=== PATIENT | male | born 1990 | race Caucasian/White ===

== ENCOUNTER 2024-04-04 12:45 | Emergency (ER) | payer MEDICARE, SELFPAY ==
--- NOTE | ~2024-04-04 | XR_ITS ---
EXAMINATION: XR SHOULDER, LEFT CLINICAL INFORMATION: Pain COMPARISON: None available. TECHNIQUE: Three views of the left shoulder. FINDINGS: The bones and soft tissues are normal. No fracture. Glenohumeral and acromioclavicular alignment is anatomic with normal joint space. There is increased coracoclavicular distance measuring 15 mm. XR/XR shoulder LT min 2V IMPRESSION: Widening of the coracoclavicular distance may be due to ligamentous injury.
--- NOTE | ~2024-04-04 | XR_ITS ---
EXAMINATION: XR HAND/WRIST, RIGHT CLINICAL INFORMATION: Right hand pain COMPARISON: None TECHNIQUE: PA, lateral, and oblique views of the right hand and wrist. FINDINGS: The bones and soft tissues are normal. No fracture. Alignment is anatomic. Joint spaces are maintained. No erosions or soft tissue calcifications. XR/XR hand wrist RT IMPRESSION: Normal radiographs of the hand and wrist.
[2024-04-04 12:59] VITALS: BP 106/77; BP 122/70; PULSE 102; PULSE 90; RESP 21; TEMP 36.5; O2SAT 97; O2SAT 98; BMI 20.9
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
[2024-04-04] MEDS: LORazepam 2 MG/ML VIAL IM ×2 (14:55→16:25)
[2024-04-04] MEDS: Haloperidol Lactate 5 MG/ML VIAL IM (14:55)
--- NOTE | 2024-04-04 14:55 | MHC.EDTECH ---
pt refusing vital signs to be checked, very aggressive, security called.
[2024-04-04] MEDS: diphenhydrAMINE HCL 50 MG/ML VIAL IM (16:25)
[2024-04-04] MEDS: chlorproMAZINE HCl 25 MG/ML AMPUL 100 MG IM (16:25)
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
[2024-04-04 17:06] VITALS: BP 119/64; PULSE 92; RESP 20
[2024-04-04 17:09] VITALS: BP 119/64; PULSE 92; RESP 20; TEMP -17.7; TEMP 0; O2SAT 0
== END 2024-04-04 16:30 | disposition home or self-care (01) ==
PROVIDERS: Emergency Provider Emergency Medicine Emergency Medical Services
DX: M25.512 Pain in left shoulder (principal); M79.641 Pain in right hand; F91.8 Other conduct disorders; S90.822A Blister (nonthermal), left foot, initial encounter; S90.821A Blister (nonthermal), right foot, initial encounter; X58.XXXA Exposure to other specified factors, initial encounter; R45.851 Suicidal ideations; R45.1 Restlessness and agitation; Y93.9 Activity, unspecified; Y92.9 Unspecified place or not applicable; Y99.9 Unspecified external cause status; F41.9 Anxiety disorder, unspecified; F31.9 Bipolar disorder, unspecified; F19.10 Other psychoactive substance abuse, uncomplicated; F90.9 Attention-deficit hyperactivity disorder, unspecified type; Z59.00 Homelessness unspecified; F64.0 Transsexualism
CPT/HCPCS: 73030; 73110; 73130; 96372; 99284; 99285; J1200; J1630; J2060; J3230

== ENCOUNTER 2024-04-23 16:28 | Inpatient (IN) | payer OTHER, MEDICAID, SELFPAY ==
--- NOTE | ~2024-04-23 | XR_ITS ---
EXAMINATION: XR HAND, RIGHT CLINICAL INFORMATION: Third digit injury. COMPARISON: Radiographs dated 04/04/2024. TECHNIQUE: PA, lateral, and oblique views of the right hand. FINDINGS: The bones and soft tissues are normal. No fracture. Alignment is anatomic. Joint spaces are maintained. No erosions or soft tissue calcifications. XR/XR hand RT 2V IMPRESSION: Normal right hand.
[2024-04-23 15:50] VITALS: BP 137/80; PULSE 90; RESP 18; TEMP 36.8; O2SAT 99
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
--- NOTE | 2024-04-23 20:14 | HE.PHANOTE ---
METHADONE Last received from [facility] ([phone]). Per Kass[place] [facility] pt received 40mg 04/23/24 at 1020.
[2024-04-23] MEDS: traZODone HCL 50 MG TABLET PO (21:48)
[2024-04-23] MEDS: Acamprosate Calcium 333 MG TABLET.DR 666 MG PO (21:48)
[2024-04-23] MEDS: Gabapentin 100 MG CAPSULE PO (21:48)
[2024-04-23] MEDS: Melatonin 3 MG TABLET 6 MG PO (21:49)
[2024-04-23] MEDS: QUEtiapine Fumarate 200 MG TABLET PO (21:49)
--- NOTE | 2024-04-23 22:30 | HO.PM.IMCN ---
History of Present Illness Data of Consult Service Date: 04/23/24 Primary Care Provider: Unknown Physician HPI Reason for consult: Admission H&P Pt is a 33-year-old transgender male to female who identifies as Marylu Mares with a PMH significant for?asthma, polysubstance use disorder w/IVDA on methadone, peripheral neuropathy, anxiety, depression, and schizophrenia who is admitted to psychiatry. Medical consult for admission H&P. Pt seen and evaluated in their room where patient appears sedated and overall somnolent. Patient has poor eye contact with downward gaze and provides only very limited interaction. Patient complains about his hands, but is either unable or unwilling to further clarify what these complaints are. Patient only selectively answers some questions while either ignoring others or possibly falling asleep at time during the interview and exam. Overall, it is very difficult to elicit any sustained response for a detailed and accurate HPI and review of systems. Gross examination of patent indicates they are unkempt with multiple scabbed lesions covering much of their exposed skin, including head and neck and on dorsal aspect of hands. Review of Systems Review of Systems: Pt with [facility] Social History Household Members: Unknown / Unable to assess Patient Tobacco Use Status: Refuse Tobacco use screen Use of substances other than those prescribed or required for medical reasons: Refusing to respond Currently Displaying Signs/Symptoms of Drug Intoxication Withdrawal: No Advance Directives: No Advance Directives Information Provided: No Do you have thoughts of harming others: None Do you have a plan to hurt others: No Plan Nutrition Risks: Dental problems Poor oral hygiene: Yes Meds Allergies Allergy/AdvReac Type Severity Reaction Status Date / Time hydroxyzine Allergy Difficulty Verified 04/04/24 13:09 Breathing iodine Allergy Difficulty Verified 04/04/24 13:09 Breathing morphine Allergy Difficulty Verified 04/04/24 13:09 Breathing oxycodone Allergy Difficulty Verified 04/04/24 13:09 Breathing Active Medications: Current Medications Acamprosate (Acamprosate Calcium 333 Mg Tablet.) 666 mg PO TID DANIEL Last Admin: 04/23/24 21:48 Dose: 666 mg Acetaminophen (Acetaminophen 325 Mg Tablet) 650 mg PO Q6H PRN PRN Reason: Headache/Pain Mild Scale (1-3) Al Hydroxide/Mg Hydroxide (Magnesium Hydrox/Alum Hydrox 30 Ml Oral.Susp) 30 ml PO Q6H PRN PRN Reason: Heartburn/Nausea Artificial Tears (Artificial Tears 15 Ml Drops) 2 drop EYE-BOTH 6XD PRN PRN Reason: Dry Eyes Diphenhydramine HCl (Diphenhydramine Hcl 25 Mg Capsule) 25 mg PO QID PRN PRN Reason: Itching Gabapentin (Gabapentin 100 Mg Capsule) 100 mg PO BID [facility] Last Admin: 04/23/24 21:48 Dose: 100 mg Lidocaine/Diphenhydr/Alum/Mg/Simeth (Mag&Al/Sim/Diphenhyd/Lidocaine 10 Ml Oral.Susp) 10 ml PO BID PRN; Protocol PRN Reason: Mouth Sore Pain Loperamide HCl (Loperamide Hcl 2 Mg Capsule) 4 mg PO Q4H PRN PRN Reason: Diarrhea Loratadine (Loratadine 10 Mg Tablet) 10 mg PO DAILY [facility] Lorazepam (Lorazepam 1 Mg Tablet) 1 mg PO TID PRN PRN Reason: Anxiety Magnesium Hydroxide (Milk Of Magnesia 30 Ml Oral.Susp) 30 ml PO DAILY PRN PRN Reason: Constipation Melatonin (Melatonin 3 Mg Tablet) 6 mg PO BEDTIME [facility] Last Admin: 04/23/24 21:49 Dose: 6 mg Methadone HCl (Methadone Hcl 20 Mg/2 Ml Oral.Conc) 40 mg PO DAILY [facility] Nicotine (Nicotine 21 Mg Patch.Td24) 21 mg TRANSDERMA DAILY PRN PRN Reason: Nicotine Cravings Nicotine (Nicotine 21 Mg Patch.Td24) 21 mg TRANSDERMA DAILY [facility] Nicotine Polacrilex (Nicotine Polacrilex 2 Mg Gum) 4 mg BUCCAL Q2H PRN PRN Reason: Nicotine Cravings Pt Own Med ( Diclofenac Sodium [ Voltaren Arthritis Pain] 1 % Gel) 2 gm TOPICAL Q6H PRN PRN Reason: arthritic pain Quetiapine Fumarate (Quetiapine Fumarate 200 Mg Tablet) 200 mg PO BEDTIME [facility] Last Admin: 04/23/24 21:49 Dose: 200 mg Simethicone (Simethicone 80 Mg Tab.Chew) 80 mg PO TID PRN PRN Reason: Gas Tramadol HCl (Tramadol Hcl 50 Mg Tablet) 25 mg PO Q8H PRN PRN Reason: Pain, Severe (Pain Scale 7-10) Trazodone HCl (Trazodone Hcl 50 Mg Tablet) 50 mg PO BEDTIME MRX1 PRN PRN Reason: Insomnia Trazodone HCl (Trazodone Hcl 50 Mg Tablet) 50 mg PO BEDTIME DANIEL Last Admin: 04/23/24 21:48 Dose: 50 mg Home Medications ?Medication ?Instructions ?Recorded ?Confirmed ?Last Taken ?Type Chloraseptic Sore Throat PO PRN Sore Throat 04/23/24 Unknown History acamprosate 333 mg tablet,delayed 666 mg PO TID 04/23/24 04/23/24 04/23/24 10:20 History release 666 artificial tears solution eye drops 2 drp ophthalmic (eye) 6XD PRN Dry 04/23/24 04/23/24 Unknown History Eyes calamine ea topical PRN Itching 04/23/24 Unknown History cetirizine 10 mg PO DAILY 04/23/24 04/23/24 04/23/24 10:20 History 10 diclofenac sodium 1 % topical gel 2 g topical Q6H PRN arthritic pain 04/23/24 04/23/24 Unknown History (Voltaren Arthritis Pain) diphenhydramine HCl 25 mg capsule 25 mg PO QID PRN Itching 04/23/24 04/23/24 Unknown History (Benadryl) gabapentin 100 mg capsule 100 mg PO BID 04/23/24 04/23/24 04/23/24 10:20 History lorazepam 1 mg tablet 1 mg PO TID PRN Anxiety 04/23/24 04/23/24 Unknown History melatonin 3 mg tablet 6 mg PO DAILY 04/23/24 04/23/24 04/22/24 20:00 History 6 mg methadone 5 mg/5 mL oral solution 40 mg PO DAILY 04/23/24 04/23/24 04/23/24 10:20 History 40 nicotine 21 mg/24 hr daily 1 patch transdermal DAILY 04/23/24 04/23/24 04/23/24 10:20 History transdermal patch 21 mg quetiapine 200 mg tablet (Seroquel) 200 mg PO BEDTIME 04/23/24 04/23/24 Unknown History simethicone 80 mg chewable tablet 80 mg PO TID PRN GAS 04/23/24 04/23/24 Unknown History tramadol 25 mg tablet 25 mg PO Q8H PRN Pain 04/23/24 04/23/24 Unknown History trazodone 50 mg tablet 50 mg PO BEDTIME 04/23/24 04/23/24 04/22/24 20:00 History 50 Physical Exam Vital Signs and Narrative: Vital Signs: Last Vital Signs Temp 98.2 F 04/23/24 15:50 Pulse 90 04/23/24 15:50 Resp 18 04/23/24 15:50 BP 137/80 04/23/24 15:50 Pulse Ox 99 04/23/24 15:50 General: Alert and oriented. Unkempt. Pt appears sedated, somnolent, with poor eye contact and limited interactability. In no acute distress. Resp: CTA bilaterally CVS: S1, S2, RRR GI: +BS, NT, no distention Skin: Numerous scabbed lesions on exposed surfaces, including top of head and on neck Neuro: Cranial nerves II-XII grossly intact bilaterally. Motor grossly intact bilaterally Extremities: No edema Assessment and Plan (1) Medical clearance for psychiatric admission: Status: Acute Plan Pt is a 33-year-old transgender male to female who identifies as Marylu Mares with a PMH significant for?asthma, polysubstance use disorder w/IVDA on methadone, peripheral neuropathy, anxiety, depression, and schizophrenia who is admitted to psychiatry. Medical consult for admission H&P Mood disorder Plan as per Psychiatry Asthma Not in acute exacerbation Continue home inhalers Polysubstance use disorder Patient denies any recent IVDU Continue methadone Plan as per Psychiatry Peripheral neuropathy Continue gabapentin Thank you for allowing us to participate in the care of this patient. Signing off at this time. Please re-consult if any acute complaints or issues arise.
[2024-04-24] MEDS: Loratadine 10 MG TABLET PO (09:16)
[2024-04-24] MEDS: Gabapentin 100 MG CAPSULE PO (09:17)
[2024-04-24] MEDS: Nicotine 21 MG PATCH.TD24 TRANSDERMA (09:17)
[2024-04-24] MEDS: Nicotine Polacrilex 2 MG GUM 4 MG BUCCAL (09:18)
[2024-04-24 09:34] LABS: Alanine Aminotransferase 21 U/L (0-40); Albumin Level 3.5 g/dL (3.5-5.0); Alkaline Phosphatase 55 U/L (39-117); Anion Gap 8 (12-20); Aspartate Amino Transferase 28 U/L (5-37); Bilirubin Total 0.2 mg/dL (0.0-1.0); Blood Urea Nitrogen 13 mg/dL (9-16); Carbon Dioxide 33 mmol/L (22-29); Chloride 101 mmol/L (96-108); Cholesterol 101 mg/dL (<200); Estimated Glomerular Filt Rate > 60; Glucose Fasting 130 mg/dL (60-99); HDL Cholesterol 30 mg/dL (>40); LDL Cholesterol Calculated 44 mg/dL (<100); Potassium 4.1 mmol/L (3.3-5.1); Sodium 138 mmol/L (135-145); Total Protein 6.3 g/dL (6.5-8.0); Triglycerides 138 mg/dL (<150)
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
[2024-04-24] MEDS: LORazepam 1 MG TABLET PO (14:16)
[2024-04-24] MEDS: Gabapentin 300 MG CAPSULE PO ×2 (16:10→21:25)
[2024-04-24] MEDS: levETIRAcetam 500 MG TABLET PO ×2 (16:10→21:25)
[2024-04-24] MEDS: clonazePAM 0.5 MG TABLET PO ×2 (16:10→21:27)
[2024-04-24] MEDS: Lidocaine 4 % Patch ADH..PATCH 1 PATCH TRANSDERMA (16:11)
[2024-04-24] MEDS: Acamprosate Calcium 333 MG TABLET.DR 666 MG PO (21:25)
[2024-04-24] MEDS: traZODone HCL 50 MG TABLET 150 MG PO (21:25)
[2024-04-24] MEDS: QUEtiapine Fumarate 200 MG TABLET PO (21:25)
[2024-04-24] MEDS: Melatonin 3 MG TABLET 6 MG PO (21:26)
[2024-04-24] MEDS: Cyproheptadine HCl 4 MG TABLET 2 MG PO (21:27)
[2024-04-24 21:30] VITALS: BP 132/85; PULSE 92; RESP 16; TEMP 37.3; O2SAT 93
[2024-04-25 08:00] VITALS: BP 129/76; PULSE 88; TEMP 36.6; O2SAT 99
[2024-04-25] MEDS: Gabapentin 300 MG CAPSULE PO (08:31)
[2024-04-25] MEDS: levETIRAcetam 500 MG TABLET PO (08:31)
[2024-04-25] MEDS: clonazePAM 0.5 MG TABLET PO (08:31)
[2024-04-25] MEDS: Loratadine 10 MG TABLET PO (08:31)
[2024-04-25] MEDS: Nicotine 21 MG PATCH.TD24 TRANSDERMA (08:33)
[2024-04-25] MEDS: Lidocaine 4 % Patch ADH..PATCH 1 PATCH TRANSDERMA (08:36)
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
== END 2024-04-25 12:30 | disposition home or self-care (01) | DRG 883 ==
PROVIDERS: Admitting Provider Registered Nurse; Visit Provider Social Worker
DX: F60.3 Borderline personality disorder (principal); F11.20 Opioid dependence, uncomplicated; F19.90 Other psychoactive substance use, unspecified, uncomplicated; J45.909 Unspecified asthma, uncomplicated; G62.9 Polyneuropathy, unspecified; F64.0 Transsexualism; F43.10 Post-traumatic stress disorder, unspecified; Z87.820 Personal history of traumatic brain injury; Z79.899 Other long term (current) drug therapy
CPT/HCPCS: 36415; 73120; 80053; 80061

== ENCOUNTER → 2024-04-23 16:28 | Outpatient (BNV) | payer MEDICARE, MEDICAID, SELFPAY | PROVIDERS: Admitting Provider Registered Nurse; Visit Provider Student in an Organized Health Care Education/Training Program | DX: Z02.2 Encounter for examination for admission to residential institution (principal) | CPT/HCPCS: 99429 ==

== ENCOUNTER → 2024-04-23 16:28 | Outpatient (BNV) | payer OTHER, SELFPAY | PROVIDERS: Admitting Provider Registered Nurse; Visit Provider Social Worker | DX: F60.3 Borderline personality disorder (principal); S06.9XAA Unspecified intracranial injury with loss of consciousness status unknown, initial encounter; F43.10 Post-traumatic stress disorder, unspecified | CPT/HCPCS: 90792; 99238 ==

== ENCOUNTER 2024-04-26 14:11 | Emergency (ER) | payer MEDICARE, MEDICAID, SELFPAY ==
[2024-04-26 14:17] VITALS: BP 114/71; PULSE 82; RESP 16; TEMP 36.8; O2SAT 98; BMI 23.7
--- NOTE | 2024-04-26 14:27 | ED.GENADULT ---
HPI - General Adult General Chief complaint: ETOH/Substance Use Stated complaint: looking for detox Time Seen by Provider: 04/26/24 14:46 Source: patient Mode of arrival: ambulatory Limitations: no limitations History of Present Illness ED Provider: DR. Turcios HPI narrative: 33-year-old male history polysubstance abuse here today seeking detox from alcohol and opiate. Last use with earlier today,no SI, no HI, no hallucination. otherwise declined any other symptoms. Related Data Home Medications ?Medication ?Instructions ?Recorded ?Confirmed acamprosate 333 mg tablet,delayed 666 mg PO TID 04/23/24 04/23/24 release artificial tears solution eye drops 2 drp ophthalmic (eye) 6XD PRN Dry 04/23/24 04/23/24 Eyes cetirizine 10 mg PO DAILY 04/23/24 04/23/24 diclofenac sodium 1 % topical gel 2 g topical Q6H PRN arthritic pain 04/23/24 04/23/24 (Voltaren Arthritis Pain) diphenhydramine HCl 25 mg capsule 25 mg PO QID PRN Itching 04/23/24 04/23/24 (Benadryl) gabapentin 100 mg capsule 100 mg PO BID 04/23/24 04/23/24 lorazepam 1 mg tablet 1 mg PO TID PRN Anxiety 04/23/24 04/23/24 melatonin 3 mg tablet 6 mg PO DAILY 04/23/24 04/23/24 methadone 5 mg/5 mL oral solution 40 mg PO DAILY 04/23/24 04/23/24 nicotine 21 mg/24 hr daily 1 patch transdermal DAILY 04/23/24 04/23/24 transdermal patch quetiapine 200 mg tablet (Seroquel) 200 mg PO BEDTIME 04/23/24 04/23/24 simethicone 80 mg chewable tablet 80 mg PO TID PRN GAS 04/23/24 04/23/24 tramadol 25 mg tablet 25 mg PO Q8H PRN Pain 04/23/24 04/23/24 trazodone 50 mg tablet 50 mg PO BEDTIME 04/23/24 04/23/24 Previous Rx's ?Medication ?Instructions ?Recorded acamprosate 333 mg tablet,delayed 666 mg (2 x 333 mg) PO TID #90 tabs 04/25/24 release levetiracetam 500 mg tablet 500 mg PO BID #60 tabs 04/25/24 Allergies Allergy/AdvReac Type Severity Reaction Status Date / Time fentanyl Allergy Swelling Verified 04/26/24 14:28 haloperidol [From Haldol] Allergy Swelling Verified 04/26/24 14:28 hydroxyzine Allergy Difficulty Verified 04/26/24 14:28 Breathing iodine Allergy Difficulty Verified 04/26/24 14:28 Breathing morphine Allergy Difficulty Verified 04/26/24 14:28 Breathing olanzapine [From Zyprexa] Allergy Swelling Verified 04/26/24 14:28 oxycodone Allergy Difficulty Verified 04/26/24 14:28 Breathing Review of Systems Review of Systems: all other systems are reviewed and are negative Constitutional: Reports as per HPI and Reports no additional constitutional complaints Eyes: Reports as per HPI and Reports no additional eye complaints Reports system reviewed and no additional complaints, except as documented Cardiovascular: Reports as per HPI and Reports no additional cardiovascular complaints Respiratory: Reports as per HPI and Reports no additional respiratory complaints Gastrointestinal: Reports as per HPI and Reports no additional gastrointestinal complaints Genitourinary: Reports no additional female genitourinary complaints Musculoskeletal: Reports no additional musculoskeletal complaints Skin/Breast: Reports system reviewed and no additional complaints, except as docu Psychiatric: Reports no additional psychiatric complaints Endocrine: Reports no additional endocrine complaints Hematologic/Lymphatic: Reports no additional hematologic/lymphatic complaints Allergic/Immunologic: Reports no additional allergic/immunologic complaints Reports system reviewed and no additional complaints, except as documented and Reports Abnormal speech present [facility] Social History Social History Household Members: Unknown / Unable to assess Patient Tobacco Use Status: Refuse Tobacco use screen Advance Directives: Yes Advance Directives Information Provided: Yes Advance Directives on File: No Do you have a plan to hurt others: No Plan Physical Exam ED Vital Signs: Vital Signs - 24 hr 04/26/24 14:17 04/26/24 16:05 Temperature 98.2 F 98.2 F Pulse Rate 82 82 Respiratory Rate 16 16 Blood Pressure 114/71 114/71 Pulse Oximetry 98 98 Oxygen Delivery Method Room Air Room Air BMI result Body Mass Index 23.7 Vital signs have been reviewed and appear to be correct. Blood pressure elevated. Heart rate normal. Respiratory rate normal. Temperature normal. Oxygen saturation normal. Appearance: Alert. Oriented X3. No acute distress. Head: Normal external exam. Normocephalic. Atraumatic. No Montiel signs noted. No raccoon eyes noted Eyes: PERRLA. EOMI. Conjunctiva and sclera normal. Eyelids normal. ENT: TM's Normal. Pharynx normal. Uvula midline. Moist mucous membranes. No trismus noted. No drooling noted. No muffled voice noted. Neck: Normal inspection. Neck supple. FROM. No adenopathy. Thyroid Normal. No meningeal signs. No neck mass noted. CVS: Normal heart rate and rhythm. Heart sound normal. No murmurs noted. Pulses normal throughout. Respiratory: No respiratory distress. Painless inspiration. Breath sounds normal. No wheezes/rales/rhonchi noted. Chest nontender. No accessory muscle usage noted or decreased air movement noted. Abdomen: Soft and nontender. Bowel sounds normal in all 4 quadrants. No distention noted. No organomegaly noted. No visible injury noted. Back: No CVA tenderness. Full range of motion noted. Skin: Skin warm and dry. Normal skin color. Normal skin turgor. No rashes/lesions/lacerations noted. Extremities: No lower extremity edema. Extremities exhibit normal range of motion. Extremities nontender. Neuro: Oriented X 3. Cranial nerve exam: II-XII are grossly intact No motor deficit. No sensory deficit. Reflexes normal. Patient Orientation: Person, Place, Time and Situation, okay hygiene and grooming. Fair eye contact, attentive, no tics or tremors. Level of Consciousness: Awake, Appropriate and Alert Patient Behavior: Appropriate, Guarded, Cooperative and Anxious Mood Description: Constricted, Blunted and Apprehensive Affect Description: Constricted, Blunted and Apprehensive Patient Cognition Impaired: No Ability to Follow Directions: Excellent Speech Pattern: Clear, Appropriate and Spontaneous Speech, nonpressured, spontaneous with regular rate and rhythm, normal volume and prosody. No dysarthria. Memory Description: Intact, Immediate Intact and Short Term Intact Hallucinations: None Delusions: Not Present Thought Process: Intact Thought Content: positive for Intact, positive for Logical, denies Suicidal Ideation and denies Homicidal Ideation. Depressive Symptoms: Not present. Judgement and Insight: Limited but adequate. Course Course Course Narrative: RME: Done by SHIMA Canas. 33 yold male presents to the ED seeking detox for alcohol opioid use. Patient last drank alcohol opiate today. Patient denies suicidal or homicidal. Labs ordered. missed methadone dose. Reevaluation(s) Reevaluation #1: 33-year-old male with polysubstance abuse seeking detox, no acute psychosis, no symptoms for major depression. Medical clearance, possible available bed at [facility]. Time: 14:55 Medical Decision Making Differential Diagnosis Differential Diagnoses: The differential diagnosis associated with the presentation includes ( SI, HI, acute psychosis, medical clearance, electrolyte derangement, severe anemia.) Admission/Observation Consideration of admission/observation: Escalation of care including admission/observation considered Lab Data MDM Lab Attestation statement: I reviewed the patient's lab results. 04/26/24 15:02 04/26/24 15:02 Labs: Lab Results 04/26/24 04/26/24 Range/Units 15:02 15:11 WBC 12.4 X10*3/uL RBC 4.54 X10*6/uL Hgb 12.8 g/dl Hct 37.4 % MCV 82.4 fL MCH 28.2 pg MCHC 34.2 g/dl RDW 12.9 (11.0-16.0) % Plt Count 387 X10*3/uL MPV 9.7 (9.4-12.4) fL Immature Gran % (Auto) 0.4 (0.0-0.4) % Neut % (Auto) 87.6 % Lymph % (Auto) 8.8 % [place] % (Auto) 2.8 % Eos % (Auto) 0.0 % Baso % (Auto) 0.4 % Lymph # (Auto) 1.1 X10*3/uL [place] # (Auto) 0.4 X10*3/uL Eos # (Auto) 0.0 X10*3/uL Baso # (Auto) 0.1 X10*3/uL Abs Immat Gran (auto) 0.05 H (0.00-0.03) X10*3/uL Absolute Neuts (auto) 10.9 x10*3/uL Absolute Nucleated RBC 0.000 (0.0-0.012) X10*3/uL Nucleated RBC % (auto) 0.0 (0.0-0.2) /100WBC Sodium 139 mmol/L Potassium 4.0 mmol/L Chloride 104 mmol/L Carbon Dioxide 23 mmol/L Anion Gap 16 BUN 18 mg/dL Creatinine 0.81 mg/dL Estim Creat Clear Calc TNP Estimated GFR > 60 Random Glucose 128 mg/dL Calcium 9.8 mg/dL Magnesium 1.8 mg/dL Total Bilirubin 0.2 mg/dL AST 29 U/L ALT 25 U/L Alkaline Phosphatase 56 U/L Total Protein 6.9 g/dL Albumin 4.0 g/dL Urine Opiates Screen Not Detected Ur Buprenorphine Scrn Not Detected ng/mL Ur Oxycodone Screen Not Detected ng/mL Urine Methadone Screen Positive ng/mL Urine Fentanyl Screen Not Detected Ur Barbiturates Screen Not Detected Ur Phencyclidine Scrn Not Detected Ur Amphetamines Screen Not Detected U Benzodiazepines Scrn Not Detected Urine Cocaine Screen Not Detected U Marijuana (THC) Screen POSITIVE Ethyl Alcohol < 10 mg/dL COVID-19 (CAROLYN) Negative COVID-19 Clin Com See Note Discharge Plan Discharge Clinical Impression: Medical clearance for psychiatric admission, Polysubstance abuse Patient Disposition: Xfer SNF Transfer Details: [facility] Prescriptions: No Action gabapentin 100 mg Capsule 100 mg PO BID acamprosate 333 mg Tablet,Delayed Release (Dr/Ec) 666 mg PO TID cetirizine 10 mg tablet 10 mg PO DAILY diphenhydramine HCl [Benadryl] 25 mg Capsule 25 mg PO QID PRN (Reason: Itching) lorazepam 1 mg Tablet 1 mg PO TID PRN (Reason: Anxiety) methadone 5 mg/5 mL Solution 40 mg PO DAILY artificial tears solution Drops 2 drp OPHTHALMIC (EYE) 6XD PRN (Reason: Dry Eyes) quetiapine [Seroquel] 200 mg Tablet 200 mg PO BEDTIME simethicone 80 mg Tablet,Chewable 80 mg PO TID PRN (Reason: GAS) tramadol 25 mg Tablet 25 mg PO Q8H MDD 75 mg PRN (Reason: Pain) trazodone 50 mg Tablet 50 mg PO BEDTIME nicotine 21 mg/24 hr Patch 24 Hour 1 patch TRANSDERMAL DAILY melatonin 3 mg Tablet 6 mg PO DAILY diclofenac sodium [Voltaren Arthritis Pain] 1 % Gel 2 g TOPICAL Q6H PRN (Reason: arthritic pain) levetiracetam 500 mg Tablet 500 mg PO BID Qty: 60 0RF acamprosate 333 mg Tablet,Delayed Release (Dr/Ec) 666 mg PO TID Qty: 90 0RF Interventions: ED Discharge Assessment Last Done: 04/26/24 16:05 Discharge Date/Time: 04/26/24 16:06 Print Language: Belarusian
--- NOTE | 2024-04-26 14:46 | PC.NURSE ---
pronouns = she/her. pt prefers to be called Shayy (pronounced Marylu) instead of name. pt presents to the ED looking for detox services in regards to alcohol/etoh. pt reports chronic use x 20 years old. denies any hx of IVDU. last smoked marijuana laced w/ fentanyl [employer] as well as drinking 3, 40oz beers and 1, 80oz beer [employer]. reports drinking every day. pt seems to be extremely disorganized/disheveled. pt denies any SI/HI. pt changed into hospital attire by security. belongings obtained/placed in C2 closet. per security - pt is allowed to keep personal headphones as well as book. patient belongings list created. pt seen by care team. needs to be medically cleared prior to pt being discharged to [place]. pt has no complaints aside from wanting detox. no sob/wob noted. respirations even/unlabored. plan of care ongoing. call schmidt placed within reach.
--- NOTE | 2024-04-26 15:04 | MHC.CARE ---
Pt reports consuming 3 30oz beers and smoking marijuana laced with opiates. Pt requesting detox. Provided pt with literature on [facility] treatment resources in the community.
--- NOTE | 2024-04-26 15:05 | PC.NURSE ---
labs obtained/sent to lab by tech. pt aware [facility] is needed in order to follow through w/ plan in regards to being sent to [facility].
[2024-04-26 15:07] LABS: MANUAL DIFF FLAG NO
[2024-04-26 15:09] LABS: Basophils Absolute Auto 0.1 X10*3/uL; Basophils Percent Auto 0.4 %; Hematocrit 37.4 %; Hemoglobin 12.8 g/dl; Imm Gran Abs Auto 0.05 X10*3/uL (0.00-0.03); Imm Gran Pct Auto 0.4 % (0.0-0.4); Lymphocytes Absolute Auto 1.1 X10*3/uL; Lymphocytes Percent Auto 8.8 %; Mean Corpuscular HGB Conc 34.2 g/dl; Mean Corpuscular Hemoglobin 28.2 pg; Mean Corpuscular Volume 82.4 fL; Mean Platelet Volume 9.7 fL (9.4-12.4); Monocytes Absolute Auto 0.4 X10*3/uL; Monocytes Percent Auto 2.8 %; Neutrophils Absolute Auto 10.9 x10*3/uL; Neutrophils Percent Auto 87.6 %; Platelet Count 387 X10*3/uL; Red Blood Count 4.54 X10*6/uL; Red Cell Distribution Width 12.9 % (11.0-16.0); White Blood Count 12.4 X10*3/uL
--- NOTE | 2024-04-26 15:15 | PC.NURSE ---
drug screen/sent to lab.
[2024-04-26 15:28] LABS: Alanine Aminotransferase 25 U/L; Alkaline Phosphatase 56 U/L; Anion Gap 16; Aspartate Amino Transferase 29 U/L; Bilirubin Total 0.2 mg/dL; Blood Urea Nitrogen 18 mg/dL; Calcium 9.8 mg/dL; Carbon Dioxide 23 mmol/L; Chloride 104 mmol/L; Estimated Glomerular Filt Rate > 60; Ethanol < 10 mg/dL; Glucose Random 128 mg/dL; Magnesium 1.8 mg/dL; Sodium 139 mmol/L; Total Protein 6.9 g/dL
[2024-04-26 15:29] LABS: COVID-19 Test Negative; IDNOW Serial# 152EDE1D
[2024-04-26 15:32] LABS: Amphetamine Screen Urine Not Detected; Barbiturates, Urine Not Detected; Benzodiazepines Screen Urine Not Detected; Buprenorphine Scr Not Detected; Cannabinoid Screen Urine POSITIVE; Cocaine Screen Urine Not Detected; Fentanyl, urine Not Detected; Methadone Screen, Urine Positive; Opiate Screen Urine Not Detected; Oxycodone Screen Urine Not Detected; Phencyclidine Screen Urine Not Detected
--- NOTE | 2024-04-26 16:03 | PC.NURSE ---
care team provided pt w/ transportation via [employer].
[2024-04-26 16:05] VITALS: BP 114/71; PULSE 82; RESP 16; TEMP 36.8; O2SAT 98
== END 2024-04-26 16:06 | disposition skilled nursing facility (03) ==
PROVIDERS: Physician Assistant; Emergency Provider Emergency Medicine
DX: F10.10 Alcohol abuse, uncomplicated (principal); F11.10 Opioid abuse, uncomplicated; Y90.0 Blood alcohol level of less than 20 mg/100 ml; Z71.41 Alcohol abuse counseling and surveillance of alcoholic; Z11.52 Encounter for screening for COVID-19; Z51.81 Encounter for therapeutic drug level monitoring
CPT/HCPCS: 80053; 80307; 83735; 85025; 87635; 99282